=== PATIENT | male | born 1955 | race Caucasian/White ===

== ENCOUNTER 2021-08-11 05:32 | Outpatient (CLI) | payer MEDICARE ==
[~2021-08-11] VITALS: Ht 185.5 cm; Wt 81.8 kg
[2021-08-11] MEDS ORDERED: CHOL10004 PO (10:32)
[2021-08-11] MEDS ORDERED: IODI150T PO (10:32)
[2021-08-11] MEDS ORDERED: ASCO-262 PO (10:32)
== END 2021-08-11 10:38 | disposition home or self-care (01) ==
LOC: PREOP 05:32
PROVIDERS: ATTEND Radiology Radiation Oncology
DX: Z01.818 Encounter for other preprocedural examination (principal)

== ENCOUNTER 2021-08-18 10:11 | Day surgery (SDC) | payer BC, MEDICARE ==
[2021-08-18] VITALS (9 sets, daily range): BP systolic 135–144; BP diastolic 78–91
[~2021-08-18] VITALS: Ht 185.5 cm; Wt 81.8 kg
[~2021-08-18 10:11] MED LIST: ASCO-262 PO; CHOL10004 PO; IODI150T PO
--- OUTSIDE RECORDS SUMMARY | 2021-08-18 10:15 | XMS REPORT | Clinical Summary ---
Author Author [facility] Organization [facility] Address Unknown Phone Unavailable Care Team Providers Care Answerer Name Role Phone Gaviota, Negranighat Jackson APRN-THREE [employer] INSTRUCTOR Unavailable Iraj Nguyen MD PCP Ortiz Franco MD Unavailable Source Comments Some departments are not documenting in the electronic medical record. If you d o not see the information that you expected, contact Release of Information in [facility] Health Information Management department at [phone] for further assistan ce in locating additional records.[facility] Allergies No Known Active Allergies Medications End Date Status Medication Sig Dispensed Refills Start Date Active MULTIVITAMIN PO Take 1 Tab by 0 mouth. Active ASCORBATE CALCIUM Take by 0 (VITAMIN C PO) mouth. Active ERGOCALCIFEROL (VITAMIN Take by 0 D2) (VITAMIN D PO) mouth. Active vitamins, B complex tab Take 1 Tab by 0 mouth daily. Active Problems Not on file Social History Date Tobacco Use Types Packs/Day Years Used Current Every Day Smoker Pipe Comments Alcohol Use Standard Drinks/Week Occassionally Yes 0 (1 standard drink = 0.6 o z pure alcohol) Alcohol Habits Answer Date Recorded How often do you have a drink containing alcohol? No t asked How many drinks containing alcohol do you have on No t asked a typical day when you are drinking? How often do you have six or more drinks on one Not asked occasion? Comment: Occassionally 10/07/2013 Sex Assigned at Date Recorded Not on file Last Filed Vital Signs Reading Time Taken Comments Vital Sign 126/90 10/07/2013 10:18 AM LOW PRESSURE FIRER Blood Pressure 69 10/07/2013 10:18 AM LOW PRESSURE FIRER Pulse 36.6 C (97.9 F) 10/07/2013 9:43 AM LOW PRESSURE FIRER Temperature - - Respiratory Rate 97% 10/07/2013 10:18 AM LOW PRESSURE FIRER Oxygen Saturation - - Inhaled Oxygen Concentration 93 kg (205 lb) 10/07/2013 7:38 AM LOW PRESSURE FIRER Weight 185.4 cm (6' 1") 10/07/2013 7:38 AM LOW PRESSURE FIRER Height 27.05 10/07/2013 7:38 AM LOW PRESSURE FIRER Body Mass Index Plan of Treatment Health Maintenance Due Date Last Done Comments HIV SCREENING 1970 DTAP/TDAP VACCINES (1 - 1973 Tdap) HEPATITIS C SCREENING 1973 PHYSICAL (COMPREHENSIVE) 1973 EXAM SHINGLES RECOMBINANT 2005 VACCINE (1 of 2) ABDOMINAL AORTIC ANEURYSM 2020 SCREENING PNEUMONIA (PPSV23) 2020 VACCINE (1 of 1 - PPSV23) INFLUENZA VACCINE 06/06/2021 COLORECTAL CANCER 10/07/2023 10/07/2013 SCREENING Results Not on filefrom Last 3 Months Insurance Type Payer Benefit Subscriber ID Effective Phone Address Plan / Dates Group PPO BCBS J[employer] [id number] 2012-P OUT OF resent STATE [address] (Home) [place] [id number] Advance Directives Patient Gang Rider Explanation Type Date Recorded Advance 09/09/2013 2:31 PM Directive/DPOA
[2021-08-18] MEDS ORDERED: LACTATED RINGERS 1,000 ML IV PRN (11:15)
--- NOTE | 2021-08-18 11:22 | Progress Note-Pre Operative ---
Pre-Operative Progress Note H&P Reviewed The H&P was reviewed, patient examined and no changes noted. Date Seen by Provider: Aug 18, 2021 Time Seen by Provider: 11:00 Date H&P Reviewed: Aug 18, 2021 Time H&P Reviewed: 11:00 Pre-Operative Diagnosis: Prostate cancer cT1c, PSA 4.06, Remer 7 (3+4) RODRIGO MARTINEZ MD Aug 18, 2021 11:22
[2021-08-18] MEDS ORDERED: CIPR-226 PO (11:24)
[2021-08-18] MEDS ORDERED: ACET1TAB43 PO (11:24)
--- NOTE | 2021-08-18 11:27 | Discharge Inst-Simple/Standard ---
Discharge Inst-Standard Reconcile Patient Problems Problems Reviewed?: Yes Discharge Medications New, Converted or Re-Newed RX: RX Given to Pt/Family Patient Instructions/Follow Up Plan of Care/Instructions/FU: 1)one month follow up with Dr. Wiggins 09/14/21 at 2:00 p.m. 2)post implant ct scan at [facility] cancer [facility] 09/15/21 at 9:00 a.m. Activity as Tolerated: Yes Discharge Diet: No Restrictions Other Inst to Patient Please instruct patient on alicea catheter care and self removal on Monday08/23/21 in the morning. RODRIGO MARTINEZ MD Aug 18, 2021 11:27
[2021-08-18] MEDS ORDERED: BACITRACIN OINTMENT 28 GM TUBE ONE (12:09)
[2021-08-18] MEDS ORDERED: fentaNYL INJ 100 MCG/2 ML AMP ONE ×2 (12:17→13:05)
[2021-08-18] MEDS ORDERED: MIDAZOLAM 2 MG/2 ML (VERSED) VIAL ONE (12:17)
[2021-08-18] MEDS ORDERED: LIDOCAINE PF 2% 5 ML (XYLOCAINE) VIAL ONE (12:27)
[2021-08-18] MEDS ORDERED: ONDANSETRON 4 MG/2 ML (SDV) Z0FRAN ONE (12:27)
[2021-08-18] MEDS ORDERED: proPOfol 200 MG/20 ML (DIPRIVAN) VIAL IV ONE (12:27)
[2021-08-18] MEDS ORDERED: SEVOFLURANE (ULTANE) 15 ML INHAL SOLN ONE (13:13)
--- NOTE | 2021-08-18 13:32 | Anesthesia-General Post-Op ---
General Patient Condition Mental Status/LOC: Same as Preop Cardiovascular: Satisfactory Nausea/Vomiting: Absent Respiratory: Satisfactory Pain: Controlled Complications: Absent Post Op Complications Complications None Follow Up Care/Instructions Patient Instructions None needed. Anesthesia/Patient Condition Patient Condition Patient is doing well, no complaints, stable vital signs, no apparent adverse anesthesia problems. No complications reported per nursing. GHADA SAMUEL CRNA Aug 18, 2021 13:32
--- NOTE | 2021-08-18 13:40 | Progress Note-Post Operative ---
Post-Operative Progess Note Surgeon (s)/Business Solutions Director (s) Surgeon RODRIGO MARTINEZ MD Business Solutions Director: Mattie WALTER MD Pre-Operative Diagnosis Prostate cancer cT1c, PSA 4.06, Jennifer 7 (3+4) Post-Operative Diagnosis Same as pre-op Procedure & Operative Findings Date of Procedure 08/18/21 Procedure Performed/Findings (1) 100% Cesium 131 permanent prostate seed implant (2) Injection of biodegradable hydrogel prostate-rectal spacer utilizing the SpaceOAR system (3) Cystogram Prostate volume 50 cc Anesthesia Type General Estimated Blood Loss Estimated blood loss (mL): Minimal Specimens/Packing Specimens Removed None Packing: None RODRIGO MARTINEZ MD Aug 18, 2021 13:40
[2021-08-18] MEDS ORDERED: ONDANSETRON 4 MG/2 ML (SDV) Z0FRAN IVP PRN (13:45)
[2021-08-18] MEDS ORDERED: morphine INJ 10 MG/ML 1ML (SYR OR VIAL) IVP ONE (13:45)
--- NOTE | 2021-08-18 14:03 | Diagnostic Imaging Report ---
INDICATION: Fluoroscopy for brachytherapy. Fluoroscopy was provided during brachytherapy. 13 seconds of fluoroscopic time was utilized. 2 images were obtained demonstrating multiple radiation seed implants within the prostate gland. IMPRESSION: Fluoroscopy for brachytherapy. Dictated by: Dictated on workstation # [id number]
== END 2021-08-18 15:10 | disposition home or self-care (01) ==
LOC: SDC 10:11
PROVIDERS: ATTEND Radiology Radiation Oncology
DX: C61 Malignant neoplasm of prostate (principal); G47.33 Obstructive sleep apnea (adult) (pediatric); F17.210 Nicotine dependence, cigarettes, uncomplicated; Z79.899 Other long term (current) drug therapy; Z86.2 Personal history of diseases of the blood and blood-forming organs and certain disorders involving the immune mechanism
CPT/HCPCS: 55874; 55876; 76000; 76965; 77290; 77318; 77332; 77370; 77470; 77778; 87081; C1715 ×2; C1889; C2643

== ENCOUNTER 2021-09-15 08:52 | Outpatient (RCR) | payer MEDICARE ==
[~2021-09-15 08:52] MED LIST changes: +ACET1TAB43 PO; +CIPR-226 PO
== END 2021-10-03 | disposition home or self-care (01) ==
LOC: ONC 08:52
PROVIDERS: ATTEND Radiology Radiation Oncology
DX: Z51.0 Encounter for antineoplastic radiation therapy (principal); C61 Malignant neoplasm of prostate; G47.33 Obstructive sleep apnea (adult) (pediatric); F12.90 Cannabis use, unspecified, uncomplicated; Z86.19 Personal history of other infectious and parasitic diseases; Z86.2 Personal history of diseases of the blood and blood-forming organs and certain disorders involving the immune mechanism
CPT/HCPCS: 76873; G0463; 77290; 99204

== ENCOUNTER → 2021-09-29 | Outpatient (CLI) | payer MEDICARE | LOC: ONC 01:00 | PROVIDERS: ATTEND Radiology Radiation Oncology | DX: Z53.9 Procedure and treatment not carried out, unspecified reason (principal) ==